=== PATIENT | female | born 1990 | race African-American/Black ===

== ENCOUNTER 2018-04-30 10:41 | Day surgery (SDC) | payer OTHER ==
[2018-04-30 11:44] VITALS: BMI 29.0
--- NOTE | 2018-04-30 13:11 | PRG ---
DATE OF SERVICE: 04/30/2018 PRESENTING COMPLAINT: Decreased movement at 33 weeks gestation. HISTORY OF PRESENT ILLNESS: Ms. Acosta is a 27-year-old 4, para 2, AB 1 at 33 weeks' gestat ion who reports that she has only had 2 movements in 30 minutes with her baby. She denies bleeding. She was concerned and wanted further evaluation. 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 The patient is on progesterone w michkly for history of labor. She has had an elective termination. Blood type is A positive, antibody negative, Pap negative, rubella immune, VDRL nonreactive, hepatitis B, GC chlamydia negative , normal 50 gram, Group B strep not done. PAST MEDICAL HISTORY: Denies. PAST SURGICAL HISTORY: . ALLERGIES: Denies. MEDICATIONS: vitamins. SOCIAL HISTORY: Denies tobacco, alcohol, IV drug abuse. FAMILY HISTORY/REVIEW OF SYSTEMS: Noncontributory. PHYSICAL EXAMINATION: GENERAL: Black female in no acute distress. VITAL SIGNS: Temperature 98.7, respirations 18, pulse 92, blood pressure 118/72. HEENT: Within normal limits. LUNGS: Clear to auscultation bilaterally. HEART: Regular rate and rhythm. ABDOMEN: Soft and nontender with a fundal height of 33 cm. FHTs 130s to 140s. PELVIC: Vulva without lesions. Vaginal exam deferred. EXTREMITIES: Without clubbing, cyanosis or edema. nonstress testing was carried out for greater than 30 minutes for indication of decreased movement. Reactive heart rate tracing was noted with no decels and occasional uterine irritab ility, no evidence of active labor. Ultrasound BPP and FELISA were performed. Normal FELISA was noted. Biophysical profile was 6/8 with 2 off for tone. This is not completely unexpected at an early gestational age for antepartum testing. Of note, the patient has felt 4 movements while on the unit. IMPRESSION: Decreased movement at 33 weeks gestation without objective evidence of distr ess or compromise. BPP 6/8 with normal FELISA decreased tone and a reactive nonstress test. PLAN: The patient is discharged home with b.i.d. kick counts, ER precautions and to keep scheduled followup with Dr. Monson.
--- NOTE | 2018-04-30 14:31 | ULT ---
BIOPHYSICAL PROFILE: History: Decreased movement. FINDINGS: A single viable intrauterine is seen. It is in a cephalic presentation. Placenta is anterio r in location. Amniotic fluid index is calculated at 19.7. heart rate is 132 beats/minute. biophysical profile score: movement: 2 tone: 0 breathin Amniotic fluid volume: 2 IMPRESSION: Biophysical profile score 6/8. POS: [facility]
== END 2018-04-30 13:00 | disposition home or self-care (01) ==
LOC: L&D/OP 10:41
PROVIDERS: ATTEND Family Medicine
DX: O36.8130 Decreased fetal movements, third trimester, not applicable or unspecified (principal); Z3A.33 33 weeks gestation of pregnancy
CPT/HCPCS: 59025; 76819; 99281

== ENCOUNTER 2018-05-27 12:55 | Inpatient (IN) | payer OTHER ==
[2018-05-27 13:21] VITALS: BMI 30.7
--- NOTE | 2018-05-27 13:37 | PDOC.LDHP ---
Labor and Delivery H&P Chief complaint: other (Bleeding) HPI: 27 yo F @ 37.0 weeks presents after noticing vaginal bleeding. Pt reports noticing vaginal bleeding 30 minutes ago. Came here to be assessed and bleeding is still noticed on pad. Pt reports having intercourse at 5:00 am this morning. Denies any LOF or like her water broke. Reports +FM. Denies ctx. Denies any urinary sx's such as burning or increased frequency. Denies any vaginal discharge or irritation. Denies any abdominal pain. Denies any fever or chills. Denies any swelling, headaches or vision changes. Current gestational age (weeks): 37 (0) Grav: 4 Para: 2 OB History Details: Hx or Delivery, Delivered infant when she was 5 mo along. Hx of x1 due to arrest of labor Hx of elective Current complications: none Abnormal US findings: No Current medications: pre-sherrell vitamins, other (Progesterone d/c a week ago) Previous surgical history: low tranverse CS (x1) Social history: none - Physical Exam Vital signs reviewed and normal: yes General: NAD, resting Heart: RRR Lungs: nonlabored breathing Abdomen: NTTP FHT: category 2 (Some Variables noted in the room when performing speculum exam) , variable decelerations [place] contractions every: occasional ctx - Vaginal Exam cm dilated: 0 (dimple) Effacement: 25% Station: -2 - OB Labs Blood type: A RH: negative Antibody Screen: negative HIV: negative RPR: negative HEPSAg: negative 1 hour GCT: negative GBS: positive Urine drug screen: negative Rubella: immune - Assessment Pt having Vaginal bleeding likely due to trauma and Variables noticed on FHT monitoring - Plan Plan: observation in L&D -: 27 yo F @ 37.0 weeks presents after noticing vaginal bleeding. -Vaginal Bleeding Speculum exam performed. Cervix appears a little red. Possible small irritation at 12 oclock position. No sign of active bleeding. Old blood noticed in cul de sac. No sign of vaginal wall lacerations. Cervix closed. -Bleeding likely from trauma of intercourse earlier today. -UA pending. VP3 pending. Will assess for any infection -Variables noted on FHT Some variables were noted on FHT monitoring. CAT 2 strip. Having ctx on occasion. Does not appear regular. Will continue FHT monitoring for a few hours. <Abimael Yanez - Last Filed: 05/27/18 14:18> <Chilo Posada - Last Filed: 05/27/18 18:36> Allergies/Adverse Reactions: Allergies Allergy/AdvReac Type Severity Reaction Status Date / Time No Known Allergies Allergy Verified 04/30/18 11:53 Attending Addendum - Attending Addendum Date/Time: 05/27/181814 I personally evaluated the patient and discussed the management with Dr. Yanez I agree with the History, Examination, Assessment and Plan documented above with any addition or exceptions noted below. PT had a contraction stress test in response to several decelerations that appeared to be related to contractions. 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 Pit discontinued once pt experienced 3ctx in 10 min. Following discontinuation of pit pt continued to have stronger and stronger contractions. one dose of terbutaline was given to no affect. Pt had a CERVICAL CHECK 450/-1. Pt also when she went to stand had about 10cc blood drip onto the floor. Given the rapid cervical change and persistent bleeding pt has been admitted for delivery. She is GBS +. DR Monson has been notified and is available for delivery. Pt does have a h/o previous c/ s x1. She desires a TOLAC. She has discussed her desires with Dr Monson who is supportive of her desire. Will proceed with expectant management. <Chilo Posada - Last Filed: 05/27/18 18:36>
[2018-05-27 14:06] LABS: Bilirubin Negative (Negative); Blood, Urine Moderate (Negative); Clarity CLEAR (Clear); Glucose, Urine (Dipstick) Negative (Negative); Leukocyte Trace (Negative); Nitrite Negative (Negative); Protein, Urine (Dipstick) Negative (Neg-Trace); Specific Gravity, Urine 1.011 (1.002-1.036); pH, Urine 6.5 (5.0-9.0)
[2018-05-27 14:09] LABS: Bacteria/HPF None Seen HPF (None Seen); Hyaline Casts/LPF 0-3 HYALINE CAST LPF (0-3 Hyaline); Pathc Cast-AUWi Flag 0.72 (0-2.49); RBC/HPF 21-50 HPF (0-3); WBC/HPF 0-3 HPF (0-3)
[2018-05-27 14:28] LABS: Renal Epithelial None Seen HPF (0-3); Transitional Epithelial NONE SEEN HPF (0-3)
[2018-05-27] MEDS ORDERED: NS w/ Oxytocin 10 units 500 ML IV SCH ×2 (14:45)
[2018-05-27] MEDS: Lactated Ringer's 1,000 ML IV SCH ×2 (14:45→18:27)
[2018-05-27] MEDS: Terbutaline Sulfate 1 MG/ML VIAL SC SCH ×2 (17:11→18:44)
[2018-05-27] MEDS ORDERED: Fentanyl 4 mcg/Bup 0.1% Cadd 100 ML ONE (17:35)
[2018-05-27] MEDS ORDERED: Ondansetron PF 4 MG/2 ML Vial IVP PRN ×2 (17:38→18:39)
[2018-05-27] MEDS ORDERED: Promethazine HCl 25 MG/ML VIAL IM PRN ×2 (17:38→18:39)
[2018-05-27] MEDS ORDERED: Butorphanol Tartrate 1 MG/ML VIAL SLOW IVP PRN (17:38)
[2018-05-27] MEDS ORDERED: Ibuprofen 800 MG TAB PO PRN (17:38)
[2018-05-27] MEDS ORDERED: Butorphanol Tartrate 1 MG/ML VIAL ONE (17:39)
[2018-05-27 17:41] LABS: Hemoglobin 11.7 g/dL (12.0-16.0); Mean Corpuscular HGB CONC 33.1 g/dL (32.0-36.0); Mean Corpuscular Hemoglobin 31.5 pg (27.0-31.0); Platelet Count 293 thou/uL (130-400); RBC Distribution Width 11.4 % (11.5-14.5); Red Blood Cell (RBC) Count 3.72 mill/uL (4.20-5.40); White Blood Cell (WBC) Count 11.7 thou/uL (4.8-10.8)
[2018-05-27] MEDS ORDERED: Lactated Ringer's 1,000 ML IV SCH ×2 (17:45)
[2018-05-27] MEDS ORDERED: Penicillin G Potassium 5 MILL.UNITS in Sodium Chloride 0.9% 100 ML IVPB SCH (17:45)
[2018-05-27 18:16] LABS: Syphilis Antibody Nonreactive (Nonreactive); Syphilis Antibody Index 0.05 S/CO (<1.00 Non-Reactive)
[2018-05-27] MEDS ORDERED: Fentanyl 100 MCG/2 ML VIAL ONE (18:17)
--- NOTE | 2018-05-27 18:25 | ULT ---
LIMITED OB ULTRASOUND: History: 19-year-old female to evaluate for placental location, position and FELISA. FINDINGS: Single viable intrauterine fetus is noted in cephalic presentation. heart beat 145 beats/minute . Amniotic fluid index 7.6 cm. Anterior placenta. IMPRESSION: Single viable intrauterine fetus in cephalic presentation with heart rate of 145 beats/minute, FELISA 7.6 cm, with an anterior placenta. POS: [facility]
[2018-05-27 18:33] LABS: HBSAg Index 0.18 S/CO (0-0.99); Hep B Surf Ag Non-Reactive S/CO (NonReactive)
[2018-05-27] MEDS ORDERED: ePHEDrine/0.9% NaCl/PF SYRINGE 50 mg/10 ml SLOW IVP PRN (18:39)
[2018-05-27] MEDS ORDERED: Lactated Ringer's 500 ML IV PRN (18:39)
[2018-05-27] MEDS ORDERED: Acetaminophen 325 MG TAB PO PRN (18:39)
[2018-05-27] MEDS ORDERED: Naloxone HCl 0.4 mg/ml Vial IVP PRN ×2 (18:39)
[2018-05-27] MEDS ORDERED: Eucerin (Mineral Oil/Petrolatum,White) 30 gm Jar TOP PRN (18:39)
[2018-05-27] MEDS ORDERED: diphenhydrAMINE 50 MG/ML VIAL IVP PRN (18:39)
[2018-05-27] MEDS ORDERED: Fentanyl 100 MCG/2 ML VIAL EPIDURAL PRN (18:39)
[2018-05-27] MEDS ORDERED: Fentanyl 4 mcg/Bupivacaine 0.1% Cassette 100 ML EPIDURAL SCH (18:45)
[2018-05-27] MEDS ORDERED: Communication Order-Pharmacy FS SCH (18:45)
[2018-05-27] MEDS ORDERED: Lidocaine 1% (PF) 30 ML VIAL ONE (19:43)
[2018-05-27] MEDS ORDERED: Misoprostol 200 MCG TAB ONE (19:44)
[2018-05-27] MEDS ORDERED: Methylergonovine 0.2 MG/ML VIAL ONE (19:44)
[2018-05-27] MEDS ORDERED: Carboprost 250 MCG/ML AMP ONE (19:45)
[2018-05-27] MEDS ORDERED: Penicillin G 2.5 MILL.units 2.5 MILL.UNITS in Premix Bag 1 BAG IVPB SCH (21:00)
[2018-05-27] MEDS: NS / Oxytocin 40 units/1000ml 1,000 ML IV PRN ×2 (22:19→23:31)
[2018-05-27 22:46] LABS: Actual Bicarbonate (HCO3a) 21.9 mEq/L (22-28); Base Excess (BEa) -7.4 mEq/L (-2.0 to +3.0)
[2018-05-28] MEDS ORDERED: Benzocaine/Menthol 20-0.5% 60 ML CAN TOP PRN (00:51)
[2018-05-28] MEDS ORDERED: Bisacodyl 10 MG SUPP PR PRN (00:51)
[2018-05-28] MEDS ORDERED: HYDROcodone/Acetaminophen 5/325 mg Tablet PO PRN ×2 (00:51)
[2018-05-28] MEDS ORDERED: Ondansetron PF 4 MG/2 ML Vial IVP PRN (00:51)
[2018-05-28] MEDS ORDERED: Preparation H Ointment 28 GM TUBE PR PRN (00:51)
[2018-05-28] MEDS ORDERED: Lanolin Ointment 7 GM TUBE TOP PRN (00:51)
[2018-05-28] MEDS ORDERED: Milk Of Magnesia 30 ML UDCUP PO PRN (00:51)
[2018-05-28] MEDS ORDERED: diphenhydrAMINE 25 MG CAP PO PRN (00:51)
[2018-05-28] MEDS ORDERED: NS / Oxytocin 40 units/1000ml 1,000 ML IV SCH (00:51)
[2018-05-28] MEDS ORDERED: Bupivacaine/Epinephrine 0.25% 30 ML VIAL ONE (01:11)
[2018-05-28] MEDS: Ibuprofen 800 MG TAB PO SCH ×4 (05:23→21:56)
[2018-05-28 05:36] LABS: Mean Corpuscular HGB CONC 35.2 g/dL (32.0-36.0); Mean Corpuscular Hemoglobin 33.5 pg (27.0-31.0); Mean Corpuscular Volume 95.3 fL (78.0-98.0); Mean Platelet Volume 7.3 fL (7.4-10.4); Platelet Count 238 thou/uL (130-400); RBC Distribution Width 11.2 % (11.5-14.5); Red Blood Cell (RBC) Count 2.99 mill/uL (4.20-5.40); White Blood Cell (WBC) Count 19.7 thou/uL (4.8-10.8)
[2018-05-28] MEDS: Ferrous Sulfate 325 MG TAB PO SCH ×2 (08:28→14:45)
[2018-05-28] MEDS: Docusate Calcium (SURFAK) 240 MG CAP PO SCH ×2 (08:29→21:13)
[2018-05-28] MEDS: Prenatal Vitamin 1 TAB PO SCH (08:29)
[2018-05-29] MEDS: Ibuprofen 800 MG TAB PO SCH ×3 (01:32→18:23)
[2018-05-29] MEDS: Ferrous Sulfate 325 MG TAB PO SCH ×2 (09:05→16:45)
[2018-05-29] MEDS: Docusate Calcium (SURFAK) 240 MG CAP PO SCH (09:05)
[2018-05-29] MEDS: Prenatal Vitamin 1 TAB PO SCH (09:05)
[2018-05-29 11:11] VITALS: BP 112/71; TEMP 98.2
[2018-05-29] MEDS ORDERED: Measles/Mumps/Rubella 10 MCG/0.5 ML VIAL SC ONE (19:00)
== END 2018-05-29 19:00 | disposition home or self-care (01) | DRG 807 ==
LOC: L&D/OP 12:55 → L&D 18:22 → 3SW 05-28 00:50
PROVIDERS: ADMIT Family Medicine; ATTEND Family Medicine
PROC: 10E0XZZ Delivery of Products of Conception, External Approach (ICD-10-PCS; principal; 2018-05-27)
PROC: 0KQM0ZZ Repair Perineum Muscle, Open Approach (ICD-10-PCS; 2018-05-27)
DX: O70.1 Second degree perineal laceration during delivery (principal); Z37.0 Single live birth; Z3A.37 37 weeks gestation of pregnancy; O34.219 Maternal care for unspecified type scar from previous cesarean delivery
CPT/HCPCS: 36415; 51702; 76815; 81003; 81015; 82805; 85027; 86780; 86850; 86900; 86901; 87340; 87480; 87510; 87660; 88307; 90707; 99285; A4353; J0595; J2001; J2210; J2540; J3010; J3105; J3490; J7050

== ENCOUNTER 2021-12-08 09:28 | Outpatient (CLI) | payer OTHER | END 2021-12-08 09:29 | disposition home or self-care (01) | LOC: BICMAMMO 09:28 | PROVIDERS: ATTEND Nurse Practitioner Women's Health | DX: N63.15 Unspecified lump in the right breast, overlapping quadrants (principal) | CPT/HCPCS: 77066; G0279 ==

== ENCOUNTER 2023-05-07 08:16 | Emergency (ER) | payer SELFPAY, OTHER | END 2023-05-07 09:06 | disposition home or self-care (01) | LOC: ERS 08:16 | DX: S63.502A Unspecified sprain of left wrist, initial encounter (principal); M79.642 Pain in left hand; Y04.8XXA Assault by other bodily force, initial encounter | CPT/HCPCS: 29125 ==